=== PATIENT | male | born 1955 | race Caucasian/White ===

== ENCOUNTER 2017-03-19 14:12 | Day surgery (SDC) | payer BC ==
--- NOTE | ~2017-03-19 | OP ---
Record Of Operation [facility] [address] [place]. [address] NAME: DACIA BAEZA : 59 STATUS : [facility]#: [id number] AGE: 61 ADM/REG DATE : 03/19/17 MR#: [id number] REPORT SERV DATE: 03/19/17 DICTATED BY: JOSEE LOONEY DATE: 03/19/17 REPORT STATUS : Draft TRANSCRIBED BY: DA DATE: 03/19/17 DATE OF PROCEDURE: 03/19/2017 PREPROCEDURE DIAGNOSIS: 6 mm right ureteral calculus. POSTPROCEDURE DIAGNOSIS: 6 mm right ureteral calculus. PROCEDURE: Right ESWL. SURGEON: Josee Looney M.D. FIRST ASSISTANCE: Damari Owens. ANESTHESIA: MAC. HISTORY: Mr. Baeza is a 61-year-old white male, with a symptomatic right ureteral stone. We discussed treatment options and he requested right ESWL. Risks specific to this procedure include, but not limited to bleeding, infection, incomplete stone fragmentation, Steinstrasse, hematoma, injury to neighboring organs, need for further urologic procedures, anesthesia complications, and so forth. I answered all his questions I believe to his satisfaction. Subsequently, he requested the procedure and provided informed written consent. PROCEDURE IN DETAIL: On 03/19/2017, the patient was brought to the lithotripsy suite. He was placed supine on the Dornier Compact Delta II lithotriptor. Biplanar fluoroscopy was used to localize the right ureteral calculus. A time-out was called. The proper patient and procedure were confirmed. Levaquin was administered as a perioperative antibiotic. At this time, the Anesthesia team established monitored anesthesia care. Subsequently, we delivered a total of 3000 shocks at a maximum power level of 5, and rate of 120 shocks per minute to the stone. Fluoroscopy time was 2 minutes and 6 seconds. The patient tolerated the procedure well without immediate complications. He was transferred to the recovery area in stable condition. TARA/DA Josee Looney M.D. / [id number] CC: Nir Romo D.O.
[~2017-03-19 14:12] MED LIST: ADVIL PM PO; ADVIL PO; GARLIC200 MG PO; NORCO1 TA1 PO
[2017-03-19 15:41] LABS: HEMATOCRIT 54.2 % (40.0-51.0); HEMOGLOBIN 18.7 g/dL (13.6-17.8)
== END 2017-03-19 17:30 | disposition home or self-care (01) ==
LOC: SDC 14:12
PROVIDERS: Urology
DX: N20.1 Calculus of ureter (principal); Z79.891 Long term (current) use of opiate analgesic; Z98.890 Other specified postprocedural states
CPT/HCPCS: 50590; 74000; 85014; 85018; 93005; J2250; J2405; J3010

== ENCOUNTER 2017-04-02 05:07 | Day surgery (SDC) | payer BC ==
--- NOTE | ~2017-04-02 | OP ---
Record Of Operation [facility] [address] [place]. [address] NAME: DACIA BAEZA : 59 STATUS : [facility]#: [id number] AGE: 61 ADM/REG DATE : 04/02/17 MR#: [id number] REPORT SERV DATE: 04/02/17 DICTATED BY: JOSEE LOONEY DATE: 04/02/17 REPORT STATUS : Draft TRANSCRIBED BY: MODXavier DATE: 04/02/17 DATE OF PROCEDURE: 04/02/2017 PREPROCEDURE DIAGNOSIS: Persistent 7 mm right distal ureteral calculus. POSTPROCEDURE DIAGNOSIS: Persistent 7 mm right distal ureteral calculus. PROCEDURE: Right ESWL. REJECT OPENER AND FILLER: Sawyer Cadet. ANESTHESIA: MAC. HISTORY: Mr. Baeza is a 61-year-old white gentleman with a history of a large right-sided urinary calculus. He previously underwent right ESWL with incomplete stone fragmentation, but distal migration. We discussed treatment options and he requested repeat ESWL. Risks specific to this procedure include, but not limited to bleeding, infection, incomplete stone fragmentation, Steinstrasse, hematoma, injury to neighboring organs, need for further urologic procedures, anesthesia complications, and so forth. I answered all his questions, I believe to his satisfaction. Subsequently, he requested the procedure and provided his informed written consent. PROCEDURE IN DETAIL: On 04/02/2017, the patient was brought to the lithotripsy suite. He was placed supine on the Dornier Compact Delta II Lithotripter. A plantar fluoroscopy was used to localize the right ureteral calculus. A time-out was called, the proper patient and procedure confirmed. Levaquin was administered as a perioperative antibiotic. At this time, the Anesthesia team established monitored anesthesia care. Subsequently, we delivered a total of 3000 shocks at a maximum power level of 6 and rate of 120 shocks per minute to the stone. Fluoroscopy time was 1 minute 47 seconds. The patient tolerated the procedure well without immediate complications, was awakened and transferred to the recovery area in stable condition. TARA/DA Josee Looney M.D. / [id number] CC: Nir Romo D.O.
== END 2017-04-02 09:36 | disposition home or self-care (01) ==
LOC: SDC 05:07
PROVIDERS: Urology
PROC: 0TF6XZZ Fragmentation in Right Ureter, External Approach (ICD-10-PCS; principal; 2017-04-02 07:00)
DX: N20.1 Calculus of ureter (principal); R94.31 Abnormal electrocardiogram [ECG] [EKG]; Z90.89 Acquired absence of other organs; Z90.49 Acquired absence of other specified parts of digestive tract; Z87.442 Personal history of urinary calculi; Z98.890 Other specified postprocedural states
CPT/HCPCS: 50590; 74000; J2250; J2405; J3010